=== PATIENT | female | born 1975 | race African-American/Black ===

== ENCOUNTER 2016-08-30 10:54 | Emergency (ER) | payer OTHER ==
[~2016-08-30] VITALS: Ht 175.3 cm; Wt 99.8 kg
[~2016-08-30 10:54] MED LIST: FLEXERIL PO; IBUPROFEN 800800 M1 PO; LISINOPRIL-HCT1 EAC1 PO; NAPROSYN500 MG PO; NOHOMEMEDICATIONS; NORCO 5-325 TA1 EACH PO; PHENERGAN 25 MG25 M1 PO; TRAMADOL 50 MG50 MG PO
[2016-08-30 11:48] LABS: ABSOLUTE NEUTROPHILS 7.5 thou/uL (1.4-8.2); BASOPHILS 0.8 % (0.0-2.0); EOSINOPHILS 5.3 % (0.0-3.0); HEMATOCRIT 42.5 % (37.0-47.0); HEMOGLOBIN 14.3 gm/dL (12.0-15.0); LYMPHOCYTES 21.1 % (24.0-44.0); MCH 30.2 pg (26.0-34.0); MCHC 33.6 g/dL (28.0-37.0); MCV 89.8 fL (80.0-100.0); MONOCYTES 5.7 % (1.0-8.0); PLATELET COUNT 269 thou/uL (150-400); POLYS 67.1 % (36.0-66.0); RBC 4.73 mil/uL (4.20-5.00); RDW 13.4 % (10.5-14.5); WBC 11.2 thou/uL (4.0-11.0)
[2016-08-30 11:50] LABS: MANUAL DIFF NO
[2016-08-30 11:56] LABS: CALCIUM 8.5 mg/dL (8.5-10.1); POTASSIUM 3.9 mmol/L (3.5-5.1)
[2016-08-30] MEDS ORDERED: COMPAZINE10 MG PO (13:08)
[2016-08-30 13:25] VITALS: BP 130/80
== END 2016-08-30 13:27 | disposition home or self-care (01) ==
LOC: ER 10:54
PROVIDERS: Physician Assistant
DX: R51 Headache (principal); I10 Essential (primary) hypertension